=== PATIENT | male | born 1985 | race Caucasian/White ===

== ENCOUNTER 2023-07-15 18:10 | Emergency (ER) | payer BC, SELFPAY ==
[2023-07-15 18:11] VITALS: BP 183/102; PULSE 94; RESP 17; TEMP 35.8; O2SAT 96; BMI 41.3
--- NOTE | 2023-07-15 18:25 | EKG12_ITS ---
Test Reason : DYSRHYTHMIA Blood Pressure : / mmHG Vent. Rate : 084 BPM Atrial Rate : 084 BPM P-R Int : 154 ms QRS Dur : 084 ms QT Int : 374 ms P-R-T Axes : 021 017 040 degrees QTc Int : 441 ms Normal sinus rhythm Normal ECG Confirmed by SARI MARROQUIN, NIGEL ([id number]), editor city JOSE MIGUEL RAMSEY ([id number]) on 07/16/2023 10:29:02 AM Referred By: Confirmed By:NIGEL GUO MD
--- NOTE | 2023-07-15 18:29 | EDS_ITS ---
HPI HPI - GI History of Present Illness Chief Complaint: Nausea/Vomiting Detail of Chief Complaint: Anxiety. Informant: patient Nausea/Vomiting/Emesis GI Symptom: Positive for Nausea; Negative for Vomiting Onset: Today and Hours Severity: Mild Diarrhea/Melena/Hematochezia GI Symptom: Negative for Diarrhea, Melena or Hematochezia Associated Symptoms Associated Symptoms: Negative for Dysuria, Frequency, Hematuria or Urgency Narrative Narrative: 38-year-old male has a history of anxiety and panic attacks. Said he woke up this morning thought he was anxious. Had some nausea but she has not thrown up. Denies any significant abdominal pain. No fever or diarrhea. No melena or dysuria. He felt like he may have had some discomfort in his chest that was fleeting and is already resolved. No history of cardiac disease. No history of DVT or PE risk factors. No hemoptysis. No leg pain or swelling. He has had episodes like this before with his anxiety just has not lasted this long. Prior similar symptoms: Yes Recent Illness/Hospitalization: No PFSH PFS Medical History (Updated 07/15/23 @ 18:40 by Gloria Mccain) Acid reflux Anxiety Depression Fatty liver Home Medications omeprazole 20 mg capsule,delayed release 20 mg PO DAILY 10/26/16 [History Last Taken Unknown] paroxetine HCl 20 mg tablet 20 mg PO DAILY ##30 10/26/16 [Rx Last Taken Unknown] Allergy/AdvReac Type Severity Reaction Status Date / Time No Known Allergies Allergy Verified 10/26/16 19:49 Social History Smoking Status: Current every day smoker tobacco type: cigarettes ROS ROS ED ROS Narrative Nausea. Anxiety. Review of Systems ROS Unobtainable: Denies due to encephalopathy Constitutional Constitutional ED: Denies chills or fever(s) ENT ENT ED: Denies ear pain Cardiovascular Cardiovascular: Denies chest pain, palpitations or racing heartbeat Respiratory/Chest Respiratory/Chest: Denies cough or dyspnea Gastrointestinal Gastrointestinal: Reports nausea; Denies abdominal pain, constipation, diarrhea, melena or vomiting Genitourinary Genitourinary ED: Denies dysuria or hematuria Musculoskeletal Musculoskeletal: Denies arthralgias, back pain, myalgias or neck pain Integumentary Denies abscess or Abrasions Neurologic Neurologic: Denies headache(s) Psychiatric Psychiatric: Reports anxiety; Denies depression or suicidal thoughts Endocrine Endocrinology: Denies polydipsia or polyphagia Hematologic/Lymphatic Hematologic/Lymphatic: Denies easy bleeding Allergic/Immunologic Allergic/Immunologic ED: Denies mouth swelling or tongue swelling EXAM Physical Exam Narrative Exam Narrative: Well-appearing 38-year-old male. Vital signs stable afebrile. Initial blood pressure is elevated at 183/102 to be rechecked. H EENT exam unremarkable. Pupils round reactive light. Moist extremities. No trauma. Neck nontender. No lymphadenopathy. Lungs clear to auscultation bilaterally. Heart regular rhythm rate about 90 no murmur. Chest wall and ribs nontender. Abdomen soft nontender. No peritoneal signs. No right upper or right lower quadrant tenderness. No hernia or mass. No obstruction. Moving all 4 extremities. Nontender no edema. Calves nontender. 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 Equal symmetrical radial pulses. Dorsi plantarflexion intact. Back nontender. Neurologically is awake alert no focal motor deficits. Const Vital Signs: 07/15/23 18:11 Temperature 96.4 F L Temperature Source Temporal Pulse Rate 94 Respiratory Rate 17 Blood Pressure 183/102 H Blood Pressure Mean 129 Pulse Ox 96 Oxygen Delivery Method Room Air Positive well nourished and well developed; Negative for cachectic, contractures or unkempt General Appearance ED: well developed and NAD; Negative for unkempt, cachectic, contractures or pallor Nutritional Appearance: Negative for cachectic HEENT Reports moist mucous membranes normocephalic and atraumatic; Negative for trauma or tenderness Eyes PERRL and EOMs intact bilaterally General Eye ED: Negative for pale conjunctiva or scleral icterus Neck no lymphadenopathy, supple and no JVD General: Negative for tenderness Carotids: Negative for other Lymph Lymphatic: Negative for other Resp normal respiratory effort and clear to auscultation bilaterally Effort and Inspection: Negative for respiratory distress Auscultation: Negative for rales, rhonchi or wheezes Cardio regular rate, regular rhythm, S1 normal heart sound, S2 normal heart sound and no murmurs Rate: Negative for bradycardia or tachycardic Rhythm: Negative for abnormal rhythm GI non-tender, non-distended and no masses Inspection: Negative for abdominal distention Auscultation: normoactive bowel sounds Palpation: soft; Negative for tender, guarding or rebound tenderness present Back/Spine no CVA tenderness General Back: Negative for CVA tenderness Cervical Spine: Negative for cervical spine tenderness Thoracic Spine / Upper Back: Negative for thoracic spinal tenderness Lumbar Spine / Lower Back: Negative for lumbar spinal tenderness Coccyx: Negative for other Extremity full ROM General Extremety ED: Negative for edema, tenderness or other findings General Extremity: Negative for edema or other findings Neuro CN's II-XII intact bilaterally, moves all extremities and no sensory deficits noted Sensorium / Orientation: alert, oriented to person, oriented to place and oriented to time; Negative for orientation impaired, confused, lethargic or stuporous Motor Exam: strength 5/5 throughout; Negative for general weakness or strength abnormal Psych mental status grossly normal and thought process normal Appearance: Negative for unkempt or other Attitude: No agitated Mood & Affect: anxious; Negative for depressed or tearful Skin no wounds General Skin Exam: Negative for jaundice or pallor Lesions: no lesions Rashes: no rashes Trauma: Negative for abrasion Nails: Negative for discolored MDM MDM MDM Narrative Medical decision making narrative: There is [age]-year-old male with nausea no vomiting. He will be given p.o. Zofran. He is not dehydrated. He does not need IV fluids. He does not need labs. I think this is all from anxiety and possibly panic attack. I am obtaining an EKG. His exam is benign. Repeat exam patient is doing well at 6:55 PM. Zofran has helped his nausea. He feels much better. We discussed his EKG. He is comfortable being discharged home. History & Record Review Discussion w/independent historian: Patient and Family Additional record(s) reviewed:: Prior inpatient record, Prior outpatient record, Prior ED visit and Prior labs Rhythm Strip Rhythm Strip: Sinus Rhythm Rate: 84 Ectopy: None EKG Initial EKG: Attestation: I personally reviewed and interpreted this EKG as follows: Interpretation: Sinus Rhythm and No Acute Injury Pattern Comments: Sinus rhythm rate 84 no acute signs of ME nor ischemia nor dysrhythmia. Normal. Discharge Plan Triage Chief Complaint: Nausea/Vomiting ED Provider: John Justin Dx/Rx/DC Orders Clinical Impression: Anxiety, Nausea Instructions: ED Anxiety Reaction, ED Vomiting (Adult) Prescriptions: No Action omeprazole 20 MG capsule,delayed release(DR/EC) 20 mg PO DAILY paroxetine HCl 20 MG tablet 20 mg PO DAILY Qty: 30 0RF Primary Care Provider: Sridhar Castañeda Referrals: Care Physician,No Primary [Non-Staff] - Activity Restrictions/Additional Instructions: Plenty of fluids and rest. Follow-up with your doctor as needed. Disposition Disposition: Home, Self Care
[2023-07-15] MEDS: Ondansetron ODT 4 MG Tablet PO (18:35)
--- NOTE | 2023-07-15 18:40 | ED.RN ---
pt c/o bilateral arm tingling. bilateral radial pulses present, capillary refill <3 bilaterally. fingers warm to touch.
[2023-07-15 19:07] VITALS: BP 134/79; PULSE 81; RESP 16; TEMP 36.7; O2SAT 98
== END 2023-07-15 19:08 | disposition home or self-care (01) ==
LOC: ED 18:51
PROVIDERS: Emergency Provider Emergency Medicine; PCP Family Medicine; Visit Provider Emergency Medicine
DX: F41.9 Anxiety disorder, unspecified (principal); R11.0 Nausea; F32.9 Major depressive disorder, single episode, unspecified; K21.9 Gastro-esophageal reflux disease without esophagitis; F17.210 Nicotine dependence, cigarettes, uncomplicated; Z79.899 Other long term (current) drug therapy
CPT/HCPCS: 93005; 99282